=== PATIENT | male | born 1955 | race Caucasian/White ===

== ENCOUNTER 2022-10-12 08:06 | Emergency (ER) | payer MEDICARE, SELFPAY ==
[2022-10-12 08:06] VITALS: BP 156/108; PULSE 60; RESP 16; TEMP 36.4; O2SAT 98; BMI 25.7
--- NOTE | 2022-10-12 08:21 | EKG12_ITS ---
Test Reason : CP Blood Pressure : / mmHG Vent. Rate : 070 BPM Atrial Rate : 070 BPM P-R Int : 228 ms QRS Dur : 148 ms QT Int : 424 ms P-R-T Axes : 044 -32 018 degrees QTc Int : 457 ms Sinus rhythm with 1st degree A-V block Left axis deviation Right bundle branch block Abnormal ECG Confirmed by MATTHEW HOWARD, ALMITA ([id number]), commissioning editor ADEEL RODRIGUES ([id number]) on 10/15/2022 10:54:50 AM Referred By: MADELINE Confirmed By:SHAHBAZ CASTRO MD
--- NOTE | 2022-10-12 08:21 | RAD_ITS ---
STUDY: X-RAY CHEST REASON FOR EXAM: Male, 67 years old. Chest pain TECHNIQUE: Single AP portable view of the chest. COMPARISON: None. FINDINGS: EKG electrodes are seen. Scattered calcified granulomas. No acute infiltrate is seen. There is no demonstrated pleural abnormality. Mitral valve replacement. Normal mediastinum and saul. Normal visualized pulmonary arteries. Normal visualized aortic arch and descending thoracic aorta. Normal visualized thoracic spine. Normal visualized ribs, clavicles, and shoulders. There is no demonstrated abnormality of the visualized soft tissue structures of the upper abdomen. RAD/Chest 1 View (Portable) IMPRESSION: Scattered calcified granulomas. The lungs are clear. Mitral valve replacement. Electronically Signed: Bang Schwartz MD at 8:51 EST ,
[2022-10-12 08:38] VITALS: BP 163/91; PULSE 68; RESP 15; O2SAT 97
[2022-10-12 08:44] LABS: Absolute Lymphocyte Count 1.11 X10^3/uL (0.83-4.51); Absolute Neutrophil Count 3.8 X10^3/uL (2.0-7.7); Basophil# 0.04 X10^3/uL; Basophil% 0.7 % (0-1); Eosinophil# 0.06 X10^3/uL; Eosinophils% 1.1 % (0-5); Hemoglobin 15.7 g/dL (13.0-16.5); Lymphocyte # 1.11 X10^3/ul (0.83-4.51); Lymphocyte % 19.8 % (19-41); Mean Corp Hgb Conc 35.7 g/dL (32-36); Mean Corpuscular Hgb 34.6 pg (27.0-32.0); Mean Corpuscular Volume 96.9 fL (80-94); Mean Platelet Vol. 10.7 fl (6.2-12.0); Monocyte# 0.53 X10^3/uL; Monocyte% 9.4 % (0-10); NRBC Flagged by Analyzer 0 % (0-5); Neutrophil # 3.82 X10^3/uL (2.7-7.7); Neutrophil % 67.9 % (47-70); Platelet Count 168 K/mm3 (150-450); RBC Distribution Width CV 12.4 % (11.6-14.6); RBC Distribution Width SD 44.6 fl (35.1-43.9); Red Blood Count 4.54 M/mm3 (4.6-6.2); White Blood Count 5.6 K/mm3 (4.4-11.0)
--- NOTE | 2022-10-12 09:01 | EDS_ITS ---
HPI History of Present Illness Chief Complaint: Chest Pain Informant: patient Narrative Narrative: Presents persistent pain left upper chest into the shoulder since 12:30 AM. States subsiding. No recent illness. No dyspnea nausea or diaphoresis. On and off symptoms for last 2 weeks however more persistent overnight. He has had similar symptoms in the past. Mitral valve repair previously 2012. No anticoagulation medicines. History of hypertension, diet-controlled hyperlipidemia. No tobacco history. Father with an VT dying at 48. Last heart cath was 2012 with his mitral valve repair. No stress test since then. Denies any recent travel or surgeries or immobilizations. No history of PE or DVT. Prior Similar Symptoms: Yes CVD Risk Factors: Positive for Hypertension, Hypercholesterolemia and Family History 1' </=55 [facility] Medical History Hypertension Hypothyroidism Home Medications amlodipine 2.5 mg tablet 2.5 mg PO DAILY 09/05/17 [History Last Taken Unknown] aspirin 81 mg tablet,delayed release 81 mg PO DAILY@0800 09/05/17 [History Last Taken Unknown] cholecalciferol (vitamin D3) 50 mcg (2,000 unit) capsule (Vitamin D3) 2,000 unit PO DAILY 09/05/17 [History Last Taken Unknown] levothyroxine 25 mcg tablet 25 mcg PO DAILY 09/05/17 [History Last Taken Unknown] lisinopril 40 mg tablet 40 mg PO DAILY 09/05/17 [History Last Taken Unknown] metoprolol tartrate 50 mg tablet 50 mg PO BID 09/05/17 [History Last Taken Unknown] multivitamin (Multiple Vitamins tablet) 1 ea PO DAILY 09/05/17 [History Last Taken Unknown] omeprazole 20 mg capsule,delayed release 20 mg PO DAILY 09/05/17 [History Last Taken Unknown] Allergy/AdvReac Type Severity Reaction Status Date / Time No Known Allergies Allergy Verified 10/12/22 08:14 Social History Smoking Status: Never smoker ROS ROS ED Constitutional Constitutional ED: Denies chills, fever(s) or sweats Eyes Eyes: Denies change in vision ENT ENT ED: Denies dysphagia or sore throat Cardiovascular Cardiovascular: Reports chest pain; Denies leg edema, palpitations or racing heartbeat Respiratory/Chest Respiratory/Chest: Denies cough, dyspnea or dyspnea on exertion Gastrointestinal Gastrointestinal: Denies abdominal pain, diarrhea, nausea or vomiting Genitourinary Genitourinary ED: Denies dysuria, hematuria or urinary frequency Musculoskeletal Musculoskeletal: Denies back pain, extremity pain or neck pain Integumentary Denies rash or wounds Neurologic Neurologic: Denies headache(s), paresthesias or weakness EXAM Physical Exam Const Vital Signs: 10/12/22 08:06 10/12/22 08:38 10/12/22 08:40 Temperature 97.6 F L Temperature Source Temporal Pulse Rate 60 68 Respiratory Rate 16 15 Respiratory Effort Normal Non-Labored Blood Pressure 156/108 H 163/91 H Blood Pressure Mean 124 115 Pulse Ox 98 97 Oxygen Delivery Method Room Air Room Air 10/12/22 11:14 10/12/22 11:44 Temperature Temperature Source Pulse Rate 67 64 Respiratory Rate 14 14 Respiratory Effort Blood Pressure 150/95 H 153/95 H Blood Pressure Mean 113 Pulse Ox 97 96 Oxygen Delivery Method Room Air Positive well nourished and well developed General Appearance ED: well developed and NAD HEENT Reports moist mucous membranes normocephalic and atraumatic Eyes PERRL, EOMs intact bilaterally and conjunctivae normal General Eye ED: Yes normal appearance of both eyes Neck no lymphadenopathy and supple General: Negative for tenderness Chest Wall Chest: Negative for tenderness Resp normal respiratory effort and normal air movement Effort and Inspection: symmetric chest movement; Negative for respiratory distress Cardio regular rate, regular rhythm and no murmurs Peripheral Pulses: pulses 2+ throughout GI normal to inspection, nondistended, normoactive bowel sounds and non-tender Palpation: Negative for guarding or rebound tenderness present Back/Spine no CVA tenderness and no thoracic nor lumbar tenderness Extremity normal to inspection General Extremety ED: Negative for edema or tenderness General Extremity: Negative for edema Neuro oriented x3 and no sensory deficits noted Sensorium / Orientation: awake and alert Skin no rashes or lesions noted and no wounds Heart Score History: Slightly/Non-Suspicious ECG: Nonspecific Repolarization Age: >/= 65 years Risk Factors: 1 or 2 Risk Factors Troponin: </= Normal Limit Score: 4 MDM MDM MDM Narrative Medical decision making narrative: EKG new right bundle branch block compared to 19 years ago. Patient with no PE risk factors. Cardiac work-up troponin x2 was negative. Rule out ACS at this time. Discussed potential muscle skeletal. However he has cardiac risk factors. Negative per algorithm currently. 1 view chest x-ray interpreted myself and reviewed by radiology negative. Symptom-free on reevaluation. Discussed with patient follow-up with his PCP for further work-up as an outpatient would likely stress test. Return precautions. All questions were answered. Lab Data Attestation: I reviewed the patient's lab results. Labs: Laboratory Results - last 24 hr 10/12/22 10/12/22 10/12/22 08:30 08:30 10:45 WBC 5.6 RBC 4.54 L Hgb 15.7 Hct 44.0 MCV 96.9 H MCH 34.6 H MCHC 35.7 RDW Std Deviation 44.6 H RDW Coeff of Mac 12.4 Plt Count 168 MPV 10.7 Immature Gran % (Auto) 1.100 H Neut % (Auto) 67.9 Lymph % (Auto) 19.8 [place] % (Auto) 9.4 Eos % (Auto) 1.1 Baso % (Auto) 0.7 Absolute Neuts (auto) 3.8 Absolute Lymphs (auto) 1.11 Nucleated RBC % 0 Sodium 134 L Potassium 4.2 Chloride 101 Carbon Dioxide 31.0 Anion Gap 2 L BUN 11 Creatinine 1.00 Estim Creat Clear Calc 79.76 Est GFR (MDRD) Af Amer 96 Est GFR (MDRD) Non-Af 79 BUN/Creatinine Ratio 11.0 Glucose 123 H Calcium 9.5 Troponin I High Sens 27 25 Radiography Diagnostic Testing: Clinical Impression(s) from Imaging Studies Chest X-Ray 10/12/22 08:21 IMPRESSION: Scattered calcified granulomas. The lungs are clear. Mitral valve replacement. Electronically Signed: Bang Schwartz MD at 8:51 EST , EKG Initial EKG: Attestation: I personally reviewed and interpreted this EKG as follows: Comments: Sinus rate of 70, first-degree AV block no ST or T wave changes new right bundle branch block compared to 2003 18 years ago. Discharge Plan Triage Chief Complaint: Chest Pain ED Provider: Shai Bautista Dx/Rx/DC Orders Clinical Impression: Chest pain, History of hypertension, Hx of hyperlipidemia, RBBB Instructions: ED Chest Pain, Uncertain Cause Prescriptions: No Action multivitamin [Multiple Vitamins] 1 EACH tablet 1 ea PO DAILY amlodipine 2.5 MG tablet 2.5 mg PO DAILY aspirin 81 MG tablet 81 mg PO DAILY@0800 levothyroxine 25 MCG tablet 25 mcg PO DAILY metoprolol tartrate 50 MG tablet 50 mg PO BID omeprazole 20 MG capsule 20 mg PO DAILY lisinopril 40 MG tablet 40 mg PO DAILY cholecalciferol (vitamin D3) [Vitamin D3] 2,000 UNIT capsule 2,000 unit PO DAILY Primary Care Provider: Abner Olivas Referrals: Abner Olivas MD [Primary Care Provider] - 3-5 Days Activity Restrictions/Additional Instructions: Right bundle branch noted on EKG new from 2003. Cardiac work-up negative. Follow-up with her doctor for further testing as an outpatient return if any worsening symptoms. Disposition Disposition: Home, Self Care Discharge Date/Time: 10/12/22 11:51
[2022-10-12 09:03] LABS: Anion Gap 2 (5-15); BUN 11 mg/dL (7-18); Calcium,Total 9.5 mg/dL (8.5-10.1); Chloride 101 mmol/L (98-107); EST Glomerular Filtration Rate 79 mL/min (>60); Est Glom Filt Rate - Afr Amer 96 mL/min (>60); Estimated Creatinine Clearance 79.76 ml/min; Glucose 123 mg/dL (74-106); Potassium 4.2 mmol/L (3.5-5.1); Sodium Level 134 mmol/L (136-145); Troponin-I HS (w/2H Reflex) 27 pg/mL (3.0-78.0)
[2022-10-12 10:37] LABS: Reflex Troponin-HS? (from REC) Y
[2022-10-12 11:10] LABS: Troponin-I HS 25 pg/mL (3.0-78.0)
[2022-10-12 11:14] VITALS: BP 150/95; PULSE 67; RESP 14; O2SAT 97
[2022-10-12 11:44] VITALS: BP 153/95; PULSE 64; RESP 14; O2SAT 96
== END 2022-10-12 11:51 | disposition home or self-care (01) ==
PROVIDERS: Emergency Provider Emergency Medicine; PCP Family Medicine; Visit Provider Emergency Medicine
DX: R07.9 Chest pain, unspecified (principal); I10 Essential (primary) hypertension; E78.5 Hyperlipidemia, unspecified; I45.10 Unspecified right bundle-branch block
CPT/HCPCS: 71045; 80048; 84484; 85025; 93005; 99285; A4216

== ENCOUNTER 2025-02-10 09:12 | Emergency (ER) | payer MEDICARE, SELFPAY ==
[2025-02-10 09:13] VITALS: BP 164/97; PULSE 80; RESP 15; TEMP 36.7; O2SAT 99; BMI 27.9
--- NOTE | 2025-02-10 09:49 | ED.VIS.GI ---
HPI HPI - GI History of Present Illness Chief Complaint: Abd Pain Informant: patient and spouse/S.O. Narrative Narrative: 69-year-old male presenting to the emergency room with a chief complaint abdominal pain. Patient states for just over a month he has had a discomfort in his lower abdomen just below his umbilicus. He states it did at first come and go when he saw his primary care doctor and related visit and they checked a urine which was negative. He states this persisted and now it seems more constant but waxes and wanes. Nothing seems to make it better or worse. He notes no change in bowel movements. He denies any urinary symptoms. No fevers night sweats weight loss. He does not feel bloated. No change in eating. He notes a history of hypertension hypothyroidism. He notes he has had prior colonoscopies that have been negative. [facility] Medical History Hypothyroidism Hypertension Home Medications ?Medication ?Instructions ?Recorded ?Last Taken ?Type aspirin 81 mg tablet,delayed 81 mg PO DAILY@0800 09/05/17 02/10/25 History release cholecalciferol (vitamin D3) 50 2,000 unit PO DAILY 09/05/17 02/10/25 History mcg (2,000 unit) capsule (Vitamin D3) levothyroxine 25 mcg tablet 25 mcg PO DAILY 09/05/17 02/10/25 History lisinopril 40 mg tablet 40 mg PO DAILY 09/05/17 02/10/25 History omeprazole 20 mg capsule,delayed 20 mg PO QHS 09/05/17 02/09/25 History release amlodipine 10 mg tablet 10 mg PO DAILY 02/10/25 02/10/25 History atorvastatin 80 mg tablet 80 mg PO QHS cholesterol 02/10/25 02/09/25 History metoprolol succinate 50 mg 50 mg PO DAILY 02/10/25 02/10/25 History tablet,extended release 24 hr tadalafil 10 mg tablet 10 mg PO DAILY PRN sexual activity 02/10/25 Unknown History Allergy/AdvReac Type Severity Reaction Status Date / Time sulfamethoxazole (From Allergy Unknown PT UNSURE Verified 02/10/25 09:13 Bactrim) OF REACTION trimethoprim (From Bactrim) Allergy Unknown PT UNSURE Verified 02/10/25 09:13 OF REACTION Social History Smoking Status: Never smoker ROS ROS ED Constitutional Constitutional ED: Denies chills, fever(s) or weight loss Eyes Eyes: Denies change in vision or diplopia ENT ENT ED: Denies ear pain, rhinorrhea or sore throat Cardiovascular Cardiovascular: Denies chest pain, orthopnea, palpitations or racing heartbeat Respiratory/Chest Respiratory/Chest: Denies cough, dyspnea or orthopnea Gastrointestinal Gastrointestinal: Reports abdominal pain and diarrhea; Denies nausea or vomiting Genitourinary Genitourinary ED: Denies dysuria, hematuria or urinary frequency Musculoskeletal Musculoskeletal: Denies arthralgias, myalgias or neck pain Integumentary Denies abscess or rash Neurologic Neurologic: Denies headache(s) or weakness Psychiatric Psychiatric: Denies anxiety, depression, suicidal ideation or suicidal thoughts Endocrine Endocrinology: Denies polydipsia, polyphagia or polyuria Allergic/Immunologic Allergic/Immunologic ED: Denies mouth swelling, tongue swelling or urticaria EXAM Physical Exam Const Vital Signs: 02/10/25 09:13 02/10/25 11:00 Temperature 98.1 F 98.3 F Temperature Source Oral Pulse Rate 80 79 Respiratory Rate 15 16 Blood Pressure 164/97 H 132/96 H Blood Pressure Mean 119 108 Pulse Ox 99 97 Oxygen Delivery Method Room Air Positive well nourished and well developed General Appearance ED: well developed HEENT Reports normocephalic, head/scalp atraumatic and moist mucous membranes Eyes PERRL and EOMs intact bilaterally Neck no lymphadenopathy, supple and no JVD Resp normal respiratory effort and clear to auscultation bilaterally Cardio regular rate, regular rhythm and no murmurs GI normal to inspection, nondistended, normoactive bowel sounds and non-tender Palpation: soft Back/Spine no CVA tenderness and normal ROM Extremity normal to inspection General Extremety ED: Negative for edema General Extremity: Negative for edema Neuro oriented x3 and CN's II-XII intact bilaterally Sensorium / Orientation: alert Motor Exam: strength 5/5 throughout Psych mental status grossly normal Mood & Affect: Negative for depressed or tearful Skin no rashes or lesions noted and no wounds MDM MDM MDM Narrative Medical decision making narrative: Differential diagnosis includes but not limited hide diverticulitis: As adhesions malignancy ureterolithiasis Meckel's bowel obstruction hernia White blood cell count is 5.0 hemoglobin 15.1 platelet count 176. BMP shows a glucose of 111 normal creatinine normal sodium potassium. Liver enzymes showed a direct bilirubin of 0.35 total bilirubin 0.85. Lipase of [address] then pelvis with IV contrast was obtained read by radiology reviewed by myself. I do not feel there is anything on the CT that can really explain his symptoms just on beneath his umbilicus. Does have enlarged prostate which the patient does know about it. He should continue with PSA checks. Urinalysis was obtained and was negative. At this point I do not see an obvious cause for the patient's pain. I do not see incarcerated hernia on examination or CT. I do not feel there any CT findings to fully explain his pain. Labs are normal and he appears stable. He has seen Dr. Alcantara for gastroenterology in the past and they would like to follow-up there. He may also follow-up with primary care. Patient to monitor symptomology if new or worsening symptoms to return to emergency History & Record Review Discussion w/independent historian: Patient and Family Lab Data Attestation: I reviewed the patient's lab results. Labs: Laboratory Results - last 24 hr 02/10/25 02/10/25 10:05 11:08 WBC 5.0 RBC 4.47 L Hgb 15.1 Hct 41.7 MCV 93.3 MCH 33.8 H MCHC 36.2 H RDW Std Deviation 43.8 RDW Coeff of Mac 12.8 Plt Count 176 MPV 10.8 Immature Gran % (Auto) 0.600 Neut % (Auto) 73.2 H Lymph % (Auto) 14.6 L [place] % (Auto) 10.6 H Eos % (Auto) 0.6 Baso % (Auto) 0.4 Absolute Neuts (auto) 3.7 Absolute Lymphs (auto) 0.73 L Nucleated RBC % 0 Sodium 133 Potassium 4.3 Chloride 97 L Carbon Dioxide 23.8 Anion Gap 12 BUN 10 Creatinine 0.85 Estim Creat Clear Calc 98.75 Est GFR (MDRD) Non-Af 95 BUN/Creatinine Ratio 12.0 Glucose 111 H Calcium 9.4 Total Bilirubin 0.85 Direct Bilirubin 0.35 H AST 33 ALT 43 Alkaline Phosphatase 57 Total Protein 7.6 Albumin 4.5 Globulin 3.1 Lipase 28 Urine Color Yellow Urine Clarity Clear Urine pH 7.0 Ur Specific [place] 1.005 Urine Protein Negative Urine Glucose (UA) Normal Urine Ketones Negative Urine Occult Blood Negative Urine Nitrite Negative Urine Bilirubin Negative Urine Urobilinogen Normal Ur Leukocyte Esterase Negative Urine RBC 0 SEEN Urine WBC 0 SEEN Ur Squamous Epith Cells 0 SEEN Urine Bacteria 0 SEEN Urine Mucus 0 SEEN Radiography Diagnostic Testing: Clinical Impression(s) from Imaging Studies Abdomen/Pelvis CT 02/10/25 10:12 IMPRESSION: 1. Findings suggest mild cystitis and/or chronic bladder outlet obstruction given prostatomegaly. Correlate with urinalysis. Additionally given heterogeneous enhancement of the prostate, correlation with PSA recommended. 2. 3.1 cm solid-appearing partially calcified lesion in the LEFT paracolic gutter near the colonic splenic flexure and spleen of uncertain significance. There appears to be a branch of the splenic vein extending to the structure raising possibility of a prominent splenule although the appearance is slightly unusual. Recommend either follow-up multiphase MRI abdomen with and without contrast specifically to include diffusion sequences in 3 months to evaluate short interval stability and further characterize, or nuclear medicine sulfur colloid versus heat damaged RBC scan for confirmation. Comparison with any available outside imaging may also be helpful to establish long-term stability. 3. Abdominal aortic ectasia to 2.6 cm. Recommend follow-up in 5 years per 2013 ACR recommendations. 4. Additional description as above. Reading Location: [id number] Discharge Plan Triage Chief Complaint: Abd Pain ED Provider: Nehemias Regalado Dx/Rx/DC Orders Clinical Impression: Abdominal pain Instructions: Abdominal Pain Prescriptions: No Action aspirin 81 MG tablet 81 mg PO DAILY@0800 levothyroxine 25 MCG tablet 25 mcg PO DAILY omeprazole 20 MG capsule 20 mg PO QHS lisinopril 40 MG tablet 40 mg PO DAILY cholecalciferol (vitamin D3) [Vitamin D3] 2,000 UNIT capsule 2,000 unit PO DAILY metoprolol succinate 50 mg tablet extended release 24 hr 50 mg PO DAILY atorvastatin 80 mg tablet 80 mg PO QHS amlodipine 10 mg tablet 10 mg PO DAILY tadalafil 10 mg tablet 10 mg PO DAILY PRN (Reason: sexual activity) Primary Care Provider: Abner Olivas Referrals: Abner Olivas MD [Primary Care Provider] - Martin Alcantara MD [Non-Staff] - As soon as possible Print Language: Turkmen Disposition Disposition: Home, Self Care
--- NOTE | 2025-02-10 10:12 | CT_ITS ---
PROCEDURE: ABDOMEN/PELVIS W IV CONT ONLY, 02/10/2025 REASON FOR EXAM: ABDOMINAL PAIN TECHNIQUE: CT abdomen and pelvis was performed with IV contrast. Multiplanar reformats were generated. IV contrast: Isovue-300 VOLUME: 98mL RADIATION DOSE SUMMARY: CTDlvol: 13.30+ 17.47 mGy DLP: 1006.36 mGycm One or more dose reduction techniques were used (e.g., Automated exposure control, adjustment of the mA and/or kV according to patient size, use of iterative reconstruction technique). COMPARISON: None FINDINGS: Lung bases: Minimal atelectasis/scarring. Mitral annular calcification. At least trace coronary atherosclerosis. Liver: Tiny hypodensities in the LEFT lobe too small to characterize likely cysts/hemangiomas in the absence of known malignancy. Spleen: Unremarkable. Gallbladder: Unremarkable. Pancreas: Unremarkable. Adrenals: Unremarkable. Kidneys: Nonobstructing intrarenal calculi on the LEFT up to 3 mm.. Bowel: Unremarkable. Normal caliber appendix. Lymph nodes: Unremarkable. Vasculature: Mild/moderate atherosclerosis. Infrarenal abdominal aortic ectasia to 2.6 x 2.3 cm. Peritoneum: Partially calcified solid-appearing mass in the cranial aspect of the LEFT paracolic gutter abutting the colonic hepatic flexure as well as the inferior tip of the spleen measures 3.1 x 2.9 x 3.1 cm. There appears to be a branch of the splenic vein extending to this structure. Bladder: Borderline mild bladder wall thickening and suspected trabeculation.. Reproductive Organs: Prostatomegaly with heterogeneous enhancement.. Body Wall: Small fat containing bilateral inguinal hernias.. Bones: Mild multilevel spondylosis. Question demineralization. Trace lumbar levoscoliosis.. CT/Abdomen/Pelvis W IV Cont ONLY IMPRESSION: 1. Findings suggest mild cystitis and/or chronic bladder outlet obstruction giv en prostatomegaly. Correlate with urinalysis. Additionally given heterogeneous enhancement of the prostate, correlation with PSA recommended. 2. 3.1 cm solid-appearing partially calcified lesion in the LEFT paracolic gutt er near the colonic splenic flexure and spleen of uncertain significance. There appears to be a branch of the splenic vein exten ding to the structure raising possibility of a prominent splenule although the appearance is slightly unusual. Recommend [facility] follow-up multiphase MRI abdomen with and without contrast specifically to include diffusion sequences in 3 months to nia luate short interval stability and further characterize, or nuclear medicine sulfur colloid versus heat damaged RBC scan f or confirmation. Comparison with any available outside imaging may also be helpful to establish long-term stability. 3. Abdominal aortic ectasia to 2.6 cm. Recommend follow-up in 5 years per 2013 ACR recommendations. 4. Additional description as above. Reading Location: [id number]
[2025-02-10 10:20] LABS: Absolute Lymphocyte Count 0.73 X10^3/uL (0.83-4.51); Absolute Neutrophil Count 3.7 X10^3/uL (2.0-7.7); Basophil# 0.02 X10^3/uL; Basophil% 0.4 % (0-1); Eosinophil# 0.03 X10^3/uL; Eosinophils% 0.6 % (0-5); Hematocrit 41.7 % (40-54); Hemoglobin 15.1 g/dL (13.0-16.5); Lymphocyte # 0.73 X10^3/ul (0.83-4.51); Lymphocyte % 14.6 % (19-41); Mean Corp Hgb Conc 36.2 g/dL (32-36); Mean Corpuscular Hgb 33.8 pg (27.0-32.0); Mean Corpuscular Volume 93.3 fL (80-94); Mean Platelet Vol. 10.8 fl (6.2-12.0); Monocyte# 0.53 X10^3/uL; Monocyte% 10.6 % (0-10); NRBC Flagged by Analyzer 0 % (0-5); Neutrophil # 3.66 X10^3/uL (2.7-7.7); Neutrophil % 73.2 % (47-70); Platelet Count 176 K/mm3 (150-450); RBC Distribution Width CV 12.8 % (11.6-14.6); RBC Distribution Width SD 43.8 fl (35.1-43.9); Red Blood Count 4.47 M/mm3 (4.6-6.2)
[2025-02-10 10:49] LABS: AST(SGOT) 33 U/L (<=37); Alanine Aminotransfer ALT/SGPT 43 U/L (<=46); Albumin, Serum 4.5 g/dL (3.4-4.8); Alkaline Phosphatase 57 U/L (40-129); Anion Gap 12 (5-15); BUN 10 mg/dL (4-19); Bilirubin, Direct 0.35 mg/dL (0.00-0.30); Calcium,Total 9.4 mg/dL (7.6-11.0); Carbon Dioxide 23.8 mmol/L (21.0-32.0); Chloride 97 mmol/L (98-108); Creatinine, Serum 0.85 mg/dL (0.70-1.20); EST Glomerular Filtration Rate 95 (>60); Estimated Creatinine Clearance 98.75 ml/min (50-250); Globulin 3.1 g/dL (2.2-4.2); Glucose 111 mg/dL (70-99); Lipase 28 U/L (13-75); Potassium 4.3 mmol/L (3.3-5.1); Protein, Total 7.6 g/dL (5.9-8.4); Sodium Level 133 mmol/L (133-145); Total Bilirubin 0.85 mg/dL (0.00-1.30)
[2025-02-10 11:00] VITALS: BP 132/96; PULSE 79; RESP 16; TEMP 36.8; O2SAT 97
[2025-02-10 11:10] LABS: Bacteria 0 SEEN /hpf (None Seen); Mucous, Urine 0 SEEN /hpf (<or=2+); Red Blood Cells-Urine 0 SEEN /hpf (0-5); Squamous Epithelial Cells - UA 0 SEEN /hpf (0-5); White Blood Cells 0 SEEN /hpf (0-5)
[2025-02-10 11:16] LABS: Color, Urine Yellow (Yellow); Glucose, Dipstick Normal (Normal); Ketone-Dipstick Negative (Negative); Leukocyte Esterase-Dipstick Negative /ul (Negative); Nitrite-Dipstick Negative (Negative); Occult Blood-Urine Negative /ul (Negative); Protein-Dipstick Negative (Negative); Specific Gravity, Urine 1.005 (1.002-1.030); Urine Bilirubin Dipstick Negative (Negative); Urine Clarity Clear (Clear); Urine Urobilinogen Normal (Normal)
== END 2025-02-10 11:55 | disposition home or self-care (01) ==
PROVIDERS: Emergency Provider Emergency Medicine; PCP Family Medicine; Visit Provider Emergency Medicine
DX: R10.30 Lower abdominal pain, unspecified (principal); N40.0 Benign prostatic hyperplasia without lower urinary tract symptoms; I10 Essential (primary) hypertension; E03.9 Hypothyroidism, unspecified; Z79.82 Long term (current) use of aspirin; Z79.890 Hormone replacement therapy; Z79.899 Other long term (current) drug therapy
CPT/HCPCS: 74177; 80048; 80076; 81001; 83690; 85025; 99282; Q9967; A4216